=== PATIENT | male | born 1955 | race Caucasian/White ===

== ENCOUNTER 2020-02-01 17:11 | Emergency (ER) | payer SELFPAY ==
[2020-02-01] MEDS ORDERED: Sodium Chloride 0.9% 2.5 ML Syringe FLUSH PRN (17:14)
[2020-02-01] MEDS ORDERED: Sodium Chloride 0.9% 10 ML Syringe FLUSH PRN (17:14)
[2020-02-01] MEDS ORDERED: Sodium Chloride 0.9% 10 ML SDV IV PRN (17:14)
[2020-02-01] MEDS ORDERED: Sodium Chloride 0.9% 500 ML IV SCH (17:15)
[2020-02-01] MEDS ORDERED: Diltiazem 25 MG/5 ML SDV IVPUSH ONE (17:16)
[2020-02-01] MEDS ORDERED: LORazepam 2 MG/ML SDV IVPUSH ONE (17:19)
--- NOTE | 2020-02-01 17:19 | EDM.PDOC ---
<Mireille Queen - Last Filed: 02/02/20 18:38> ED HPI GENERAL MEDICAL PROBLEM - General Chief Complaint: Neuro Symptoms/Deficits Stated Complaint: POSSIBLE STROKE CODE Time Seen by Provider: 02/01/20 17:14 Source of Information: Reports: Other (friend) - History of Present Illness INITIAL COMMENTS - FREE TEXT/NARRATIVE: History of present illness: 64-year-old male brought by friend for altered mental status. Apparently patient was last seen around 2 hours ago, around 3:10 PM, at work and apparently went to his truck, then a friend went to check on him and found him abnormal, not speaking and with some muscle twitching/saying he is having muscle spasms. Patient was unable to get out of his truck on his own therefore his friend brought him here and the patient was pulled out of the truck by the friend, the patient's nurses and myself. Stroke alert immediately activated. Review of systems: As per history of present illness and below otherwise all systems reviewed and negative. Past medical history: Unknown Surgical history: Unknown. Social history: Unknown. Family history: Unknown. Physical exam: GEN: Confused, minimally verbal, protecting airway, eyes open, looking around the room HEENT: Atraumatic, normocephalic, mucous membranes moist, Neck: supple, nontender, trachea midline. Lungs: No respiratory distress. Heart: RRR Abdomen: Soft, nondistended, nontender. Back: nontender Extremities: Atraumatic. Neurovascularly intact. Neuro: Awake, alert, unable to speak or give date though later was able to report muscle spasms and reports that his hip is hurting. He was able to tell me that it was January 2020 and his appropriate age. Occasional twitching of the muscles. Does not appear convulsive or generalized tonic-clonic. More myoclonic jerk type movement. Skin: warm, dry, no lesions Diagnostics: Labs, CT scan Therapeutics: [] MDM: Impression: [] Plan: [] Definitive disposition and diagnosis as appropriate pending reevaluation and review of above. - Related Data Allergies Allergy/AdvReac Type Severity Reaction Status Date / Time Unable to Assess Allergy Unverified 02/01/20 18:22 Home Meds: Home Meds . [Unable to Verify Home Med List] 02/01/20 [History] ED ROS GENERAL - Review of Systems Review Of Systems: See Below (See HPI) ED EXAM, NEURO - Physical Exam Exam: See Below (See HPI) EKG INTERPRETATION EKG Interpretation Comments: EKG performed at 5:13 PM, atrial fibrillation with rapid ventricular rate, rate reported at 198, however looks closer to 150-1 60. Left anterior fascicular block, baseline wander/artifact. No STEMI. Interpreted by me. Repeat EKG performed at 6:31 PM, atrial fibrillation, rate 109, left anterior fascicular block, left axis deviation, no STEMI. Interpreted by me. *Q Meaningful Use (ADM) - Stroke *Q Stroke Criteria *Q: Aspirin given, heparin drip also started Course - Vital Signs Text/Narrative:: Patient presenting with altered mental status concerning for potential stroke though initially no focal neurologic deficit. However on reassessment he did have some left leg weakness and left hip pain. Possibly mild very mild facial droop. Symptoms continue to improve while in the emergency department. Discussed with stroke/interventional neurology at nearest available facility which is located in [place] at [facility]. They did not first recommend TPA, however after reassessment with rapid resolution of symptoms I discussed again with the neurologist and he did recommend risk versus benefit discussion in regards to TPA with the patient. I did speak to the patient and he requested his be present on the phone on speaker phone, therefore full risk versus benefits discussion was performed with the patient and his and a full neurological exam was performed on reassessment as well. The patient has no weakness and no facial droop at the time of reassessment and TPA discussion and he did report that he was feeling better and did not want to have TPA. No acute findings on CT brain noncontrast though the CT angios does show long segment M1 narrowing/diffuse stenosis. Unclear if this is acute versus chronic. Patient will require transfer for further evaluation. Flight team on the way for transfer to [facility] to have further neurologic evaluation. He was given aspirin for stroke symptoms. Initially the patient had a very rapid atrial fibrillation and was given a bolus dose of diltiazem and started on drip with much improvement in his rate though still ongoing atrial fibrillation. No prior history of atrial fibrillation. As he has new onset atrial fibrillation, heparin drip was also added in lieu of Lovenox as the heparin could be rapidly stopped and reversed in case of need for TPA in case of return or worsening of symptoms. The patient did remain with improvement in his symptoms. - Re-Assessments/Exams Free Text/Narrative Re-Assessment/Exam: 02/01/20 17:35 Patient reexamined while in CT scanner. Patient is able to speak more clearly now. Though still unable to give clear explanation of onset or type of symptoms other than that he has some hip pain and muscle spasming. Noncontrast brain CT scan images reviewed by me -I see no sign of intracranial hemorrhage, therefore will proceed with CT angiograms of the head and neck. 02/01/20 18:24 On reassessment, the patient's heart rate is much improved, now 110-120, still appears irregular consistent with atrial fibrillation. Patient reports no history of this. Repeat neurologic exam performed by myself. Patient is ANO x3, full strength in both upper extremities with normal strength in the right lower extremity and some mild weakness in the left lower extremity which the patient reports is due to the exacerbation of chronic hip pain which is limiting his mobility. He reports that the muscle twitching is significantly improved as well after having received the Ativan. 02/01/20 18:[address] Dias, radiologist in regards to the patient's abnormal finding on CT scan Misha brain/neck. He does not suspect that this is an acute finding, more likely chronic. Will discuss with interventional neurology at nearest facility, [place]. 02/01/20 18:50 Discussed symptoms, results and plan of care with the patient's (at his request), who has now arrived to the department, and with whom the patient gave me permission to speak. She does report some chronic left hip pain from a prior injury but that the patient normally walks without difficulty but did report increased hip pain over the last few days. She also did report that in anticipation of a new job patient and his friend did spend 12 hours working hard yesterday until 9 PM and he did get up very early this morning at 4 AM to restart the job and has been working all day. Discussed with his that the patient will need transfer and preferably by air given the critical nature and time dependent nature of his symptoms. Interventional neurology not available here nor at [facility] and therefore case will be discussed with Samm 02/01/20 19:05 No beds available at [facility], case discussed with [facility], no interventional neurology there therefore case discussed with [facility] 02/01/20 19:[address] Stoddard at [facility], who does recommend TPA at this time and transfer to hospital, accepts at this time. He will discuss directly with the ER physician to expect this patient. 02/01/20 19:18 On repeat examination of the patient, his left leg weakness and drift is completely resolved, he is able to clearly off the bed and hold for 5 seconds. Discussed again with Dr. Agosto of [place], who recommends to offer patient TPA if he does still have any weakness against resistance. 02/01/20 19:20 I did reexamine the patient at this point, and against resistance the patient is able to clearly resist with good strength in both legs and no weakness whatsoever. I had a long discussion with the patient at the bedside and with his on speaker phone at his request in regards to TPA risks versus benefits. At this point as the patient reports his symptoms are completely resolved and on physical examination his neurologic exam is unremarkable except for very mild right lift droop at baseline that clears with smiling. After risk versus benefit discussion of TPA, the patient and his prefer to decline TPA at this time. Discussed again with the patient the need for transfer via flight for the emergent nature of his condition. Initially the patient declined flight transfer and preferred to have his drive him, however I discussed at length my concern about the safety of transfer by ground and particularly any transfer outside of the hospital environment and strong recommendation for flight given time critical nature of his symptoms and the patient did then agree to transfer. Departure - Departure Time of Disposition: 19:13 Disposition: DC/Tfer to Acute Hospital 02 Clinical Impression: New onset atrial fibrillation, Atrial fibrillation with RVR Stroke Qualifiers: CVA mechanism: unspecified Qualified Code(s): I63.9 - Cerebral infarction, unspecified - Discharge Information Referrals: PCP,None [Primary Care Provider] - Forms: ED Department Discharge Critical Care Note - Critical Care Note Total Time (mins): 45 Comments: Rapid atrial fibrillation, new onset, requiring rate control and anticoagulation, acute stroke alert with fluctuating symptoms and TPA discussion with patient and spouse, need for emergent air transfer. <López Alvarez - Last Filed: 02/02/20 19:14> Course - Vital Signs Text/Narrative:: I assumed care of this patient at 1900 hrs. from my colleague Dr. Gomez. In brief, this is a 64-year-old man who presented with profound altered mental status and concern for ischemic stroke. Initially had significant dysarthria and inability to walk. Was declared a stroke code. CT imaging demonstrated d iffuse stenosis of the right M1 segment. Symptoms resolved while in the ED. Dr. Gomez did speak with the accepting neurologist who recommended a risks versus benefits discussion with the patient regarding TPA. The patient refused TPA administration after discussion with Dr. Gomez. The patient was given full dose aspirin. Noted to be in atrial fibrillation with RVR at a rate of 170. Patient was given a diltiazem bolus and infusion for rate control and was put on heparin infusion for anticoagulation. Awaiting aeromedical transport to [facility] in [place]. I up-titrated the diltiazem for additional rate control of AF-RVR. I performed a focused neurologic examination and noted no recurrence of previously-appreciated neurologic deficits. Aeromedical transport crew arrived, transferred care to them in good condition. Last Recorded V/S: Last Vital Signs Temp 36.6 C 02/01/20 18:05 Pulse 120 H 02/01/20 20:35 Resp 16 02/01/20 20:35 BP 136/83 02/01/20 20:35 Pulse Ox 98 02/01/20 20:35 - Orders/Labs/Meds Labs: Laboratory Tests 02/01/20 02/01/20 02/01/20 Range/Units 17:15 17:15 17:15 WBC 13.76 H (4.0-11.0) K/uL RBC 4.72 (4.50-5.90) M/uL Hgb 14.8 (13.0-17.0) g/dL Hct 43.9 (38.0-50.0) % MCV 93.0 (80.0-98.0) fL MCH 31.4 (27.0-32.0) pg MCHC 33.7 (31.0-37.0) g/dL RDW Std Deviation 47.2 (28.0-62.0) fl RDW Coeff of Marley 14 (11.0-15.0) % Plt Count 194 (150-400) K/uL MPV 10.50 (7.40-12.00) fL Neut % (Auto) 91.3 H (48.0-80.0) % Lymph % (Auto) 4.9 L (16.0-40.0) % [place] % (Auto) 3.0 (0.0-15.0) % Eos % (Auto) 0.6 (0.0-7.0) % Baso % (Auto) 0.2 (0.0-1.5) % Neut # (Auto) 12.6 H (1.4-5.7) K/uL Lymph # (Auto) 0.7 (0.6-2.4) K/uL [place] # (Auto) 0.4 (0.0-0.8) K/uL Eos # (Auto) 0.1 (0.0-0.7) K/uL Baso # (Auto) 0.0 (0.0-0.1) K/uL Nucleated RBC % 0.0 /100WBC Nucleated RBCs # 0 K/uL INR 1.00 APTT 24.6 (18.6-31.3) SEC Sodium 135 L (136-148) mmol/L Potassium 4.0 (3.5-5.1) mmol/L Chloride 100 (98-107) mmol/L Carbon Dioxide 21.8 (21.0-32.0) mmol/L BUN 21 H (7.0-18.0) mg/dL Creatinine 1.5 H (0.8-1.3) mg/dL Est Cr Clr Drug Dosing 47.13 mL/min Estimated GFR (MDRD) 47.3 ml/min Glucose 112 H (74-106) mg/dL Calcium 9.5 (8.5-10.1) mg/dL Magnesium (1.8-2.4) mg/dL Total Bilirubin 0.6 (0.2-1.0) mg/dL AST 30 (15-37) IU/L ALT 36 (14-63) IU/L Alkaline Phosphatase 91 (46-116) U/L Troponin I < 0.050 (0.000-0.056) ng/mL Total Protein 7.5 (6.4-8.2) g/dL Albumin 4.2 (3.4-5.0) g/dL Globulin 3.3 (2.6-4.0) g/dL Albumin/Globulin Ratio 1.3 (0.9-1.6) 02/01/20 02/01/20 Range/Units 17:15 19:55 WBC (4.0-11.0) K/uL RBC (4.50-5.90) M/uL Hgb (13.0-17.0) g/dL Hct (38.0-50.0) % MCV (80.0-98.0) fL MCH (27.0-32.0) pg MCHC (31.0-37.0) g/dL RDW Std Deviation (28.0-62.0) fl RDW Coeff of Marley (11.0-15.0) % Plt Count (150-400) K/uL MPV (7.40-12.00) fL Neut % (Auto) (48.0-80.0) % Lymph % (Auto) (16.0-40.0) % [place] % (Auto) (0.0-15.0) % Eos % (Auto) (0.0-7.0) % Baso % (Auto) (0.0-1.5) % Neut # (Auto) (1.4-5.7) K/uL Lymph # (Auto) (0.6-2.4) K/uL [place] # (Auto) (0.0-0.8) K/uL Eos # (Auto) (0.0-0.7) K/uL Baso # (Auto) (0.0-0.1) K/uL Nucleated RBC % /100WBC Nucleated RBCs # K/uL INR APTT 25.4 (18.6-31.3) SEC Sodium (136-148) mmol/L Potassium (3.5-5.1) mmol/L Chloride (98-107) mmol/L Carbon Dioxide (21.0-32.0) mmol/L BUN (7.0-18.0) mg/dL Creatinine (0.8-1.3) mg/dL Est Cr Clr Drug Dosing mL/min Estimated GFR (MDRD) ml/min Glucose (74-106) mg/dL Calcium (8.5-10.1) mg/dL Magnesium 1.7 L (1.8-2.4) mg/dL Total Bilirubin (0.2-1.0) mg/dL AST (15-37) IU/L ALT (14-63) IU/L Alkaline Phosphatase (46-116) U/L Troponin I (0.000-0.056) ng/mL Total Protein (6.4-8.2) g/dL Albumin (3.4-5.0) g/dL Globulin (2.6-4.0) g/dL Albumin/Globulin Ratio (0.9-1.6) Meds: Medications Discontinued Medications Generic Name Dose Route Start Last Admin Trade Name Manishq PRN Reason Stop Dose Admin Alteplase, Recombinant 9 mg 02/01/20 19:15 02/02/20 03:50 Activase IV 02/01/20 19:16 Not Given BOLUS STA Alteplase, Recombinant Confirm 02/01/20 19:16 02/02/20 03:50 Activase Administered 02/01/20 19:17 Not Given Dose 100 mg .ROUTE .STK-MED ONE Aspirin 324 mg 02/01/20 19:40 02/01/20 20:03 Aspirin PO 02/01/20 19:41 324 mg ONETIME ONE Administration Diltiazem HCl 20 mg 02/01/20 17:16 02/01/20 17:53 Diltiazem IVPUSH 02/01/20 17:17 20 mg ONETIME ONE Administration Heparin Sodium (Porcine) 4,000 units 02/01/20 19:40 02/01/20 20:01 Heparin Sodium IVPUSH 02/01/20 19:41 4,000 units .BOLUS ONE Administration Sodium Chloride 500 mls @ 999 mls/hr 02/01/20 17:15 02/01/20 17:52 Normal Saline IV 999 mls/hr BOLUS GINA Administration Diltiazem HCl 125 mg/ Sodium 125 mls @ 5 mls/hr 02/01/20 19:00 02/01/20 20:10 Chloride IV 10 mls/hr ASDIRECTED GINA Infusion Alteplase, Recombinant 81 mg/ 0 mls @ 0 mls/hr 02/01/20 19:16 02/02/20 03:50 Alteplase, Recombinant IV 02/01/20 19:17 Not Given ASDIRECTED STA Sodium Chloride Confirm 02/01/20 19:35 02/02/20 03:52 Normal Saline Administered 02/01/20 19:36 Not Given Dose 100 mls @ as directed .ROUTE .STK-MED ONE Heparin Sodium/Sodium Chloride 25,000 unit in 500 mls @ 25.038 mls/hr 02/01/20 19:45 02/01/20 20:02 Heparin-1/2ns 25,000 Units/500 IV 12 units/kg/hr TITRATE GINA 25.038 mls/hr Administration Protocol 12 UNITS/KG/HR Heparin Sodium/Sodium Chloride Confirm 02/01/20 19:49 Heparin-1/2ns 25,000 Units/500 Administered 02/01/20 19:50 Dose 25,000 unit in 500 mls @ as directed IV .STK-MED ONE Iopamidol 100 ml 02/01/20 19:09 02/01/20 19:14 Isovue-370 (76%) IVPUSH 02/01/20 19:10 100 ml ONETIME STA Administration Lorazepam 0.5 mg 02/01/20 17:19 02/01/20 17:54 Ativan IVPUSH 02/01/20 17:20 0.5 mg ONETIME ONE Administration Sodium Chloride 10 ml 02/01/20 17:14 02/01/20 17:54 Saline Flush FLUSH 10 ml ASDIRECTED PRN Administration Keep Vein Open Sodium Chloride 2.5 ml 02/01/20 17:14 02/01/20 17:54 Saline Flush FLUSH 2.5 ml ASDIRECTED PRN Administration Keep Vein Open Sodium Chloride 10 ml 02/01/20 17:14 Normal Saline IV ASDIRECTED PRN IV Use
--- NOTE | 2020-02-01 17:42 | CT ---
Head CT Technique: Multiple axial sections were obtained. Intravenous contrast was not utilized. Comparison: No prior intracranial imaging is available. Findings: Ventricles along with basal cisterns and sulci of the convexities are within normal limits for the patient's age. No abnormal parenchymal densities are seen. No evidence of intracranial hemorrhage. No midline shift or mass effect is appreciated. Bone window settings were reviewed which shows very small rounded finding within the right maxillary sinus most likely due to minimal retention cyst. Minimal mucosal thickening is seen within the left frontal sinus. No acute calvarial abnormality is seen. Mastoid sinuses are clear. Impression: 1. Minimal sinus findings. 2. Nothing acute is appreciated on noncontrast head CT study. Diagnostic code #2 Study was dictated in MDT
[2020-02-01 17:47] LABS: BLOOD UREA NITROGEN,BUN 21 mg/dL (7.0-18.0); CARBON DIOXIDE,CO2 21.8 mmol/L (21.0-32.0); CHLORIDE,CL 100 mmol/L (98-107); GLUCOSE RANDOM 112 mg/dL (74-106); SODIUM,NA 135 mmol/L (136-148)
--- NOTE | 2020-02-01 18:07 | CT ---
CT angiogram of neck Technique: Multiple axial sections through the neck were obtained without and with intravenous contrast) Findings: Both common carotid arteries are patent. Carotid bulb appears normal. Proximal external and internal carotid arteries appear patent. Vertebral arteries are patent. Basilar artery is patent. No focal stenosis, occlusion or dissection is seen. Impression: 1. Normal CT angiogram of the neck. Diagnostic code #1 Study was dictated in MDT
--- NOTE | 2020-02-01 18:26 | CT ---
CT angiogram of brain Technique: Multiple axial sections through the brain were obtained. Intravenous contrast was utilized during the arterial phase. Multiple MIP images were obtained. Findings: Mild diffuse narrowing of the right M1 artery is seen with narrowing by about 50%. Posterior cerebral arteries, other portions of the middle cerebral arteries and anterior cerebral arteries otherwise appear within normal limits. No discrete aneurysm is appreciated. Impression: 1. Mild diffuse narrowing of the right M1 artery at the origin of the middle cerebral artery narrowing the diameter by about 50%. 2. Other portions of the CT angiogram of the brain appear unremarkable. Diagnostic code #2 Study was dictated in MDT
[2020-02-01] MEDS ORDERED: Diltiazem 125 MG in Sodium Chloride 0.9% 100 ML IV SCH (19:00)
[2020-02-01] MEDS ORDERED: Iopamidol 755 Mg/ML 100 ML Bottle IVPUSH STA (19:09)
[2020-02-01] MEDS ORDERED: Alteplase 81 MG in Infusion 1 VIAL IV STA (19:16)
[2020-02-01] MEDS ORDERED: Sodium Chloride 0.9% 100 ML ONE (19:35)
[2020-02-01] MEDS ORDERED: Heparin Sodium 5,000 Units/ML Vial IVPUSH ONE (19:40)
[2020-02-01] MEDS ORDERED: Aspirin 81 MG Tab.Chew PO ONE (19:40)
[2020-02-01] MEDS ORDERED: Heparin Sod,Pork In 0.45% Nacl 25,000 UNIT/500 ML IV.SOLN IV SCH (19:45)
[2020-02-01] MEDS ORDERED: Heparin Sod,Pork In 0.45% Nacl 25,000 UNIT/500 ML IV.SOLN IV ONE (19:49)
== END 2020-02-01 22:50 ==
LOC: MW.ED 17:11
DX: I63.9 Cerebral infarction, unspecified (principal); I48.91 Unspecified atrial fibrillation; I44.4 Left anterior fascicular block
CPT/HCPCS: 36415; 70450; 70496; 70498; 80053; 83735; 84484; 85025; 85610; 85730; 93005; 96365; 96366; 96368; 96375; 96376; 99285; A9270; J1644; J2060; J3490; J7040; J7050; Q9967